=== PATIENT | female | born 1995 | race Native Hawaiian/Other Pacific Islander ===

== ENCOUNTER 2019-10-16 14:02 | Outpatient (CLI) | payer OTHER ==
[2019-10-16] MEDS ORDERED: VENLAFAXINE HYD75 M1 PO (14:48)
== END 2019-10-16 14:15 | disposition short-term general hospital (02) ==
LOC: AMB 14:02
DX: S01.512A Laceration without foreign body of oral cavity, initial encounter (principal); R04.0 Epistaxis; V89.2XXA Person injured in unspecified motor-vehicle accident, traffic, initial encounter; Y92.413 State road as the place of occurrence of the external cause
CPT/HCPCS: A0425; A0429

== ENCOUNTER 2019-10-16 14:18 | Emergency (ER) | payer OTHER ==
[~2019-10-16] VITALS: Ht 165.1 cm; Wt 74.8 kg
[2019-10-16 14:18] VITALS: TEMP 98.1
[2019-10-16] MEDS ORDERED: VENLAFAXINE HYD75 M1 PO (14:48)
[2019-10-16 17:40] VITALS: BP 133/82
== END 2019-10-16 18:15 | disposition home or self-care (01) ==
LOC: ED 14:23
PROC: 0CQ70ZZ Repair Tongue, Open Approach (ICD-10-PCS; principal; 2019-10-16)
DX: S01.512A Laceration without foreign body of oral cavity, initial encounter (principal); S09.93XA Unspecified injury of face, initial encounter; V89.2XXA Person injured in unspecified motor-vehicle accident, traffic, initial encounter
CPT/HCPCS: 96372; 99283; J1885